=== PATIENT | male | born 1950 | race Caucasian/White ===

== ENCOUNTER 2019-12-10 17:43 | Emergency (ER) | payer MEDICARE, BC ==
[2019-12-10] MEDS ORDERED: Adenosine 6 MG/2 ML VIAL ONE (18:30)
[2019-12-10] MEDS ORDERED: Adacel (T-DAP) 0.5 ML SYRINGE ONE (18:30)
[2019-12-10] MEDS ORDERED: Lidocaine 1% (PF) 30 ML VIAL ONE (18:58)
[2019-12-10] MEDS ORDERED: Bacitracin 1 PK ONE (19:39)
== END 2019-12-10 19:47 | disposition home or self-care (01) ==
LOC: NAV ERS 17:43
DX: S61.211A Laceration without foreign body of left index finger without damage to nail, initial encounter (principal); I10 Essential (primary) hypertension; E11.9 Type 2 diabetes mellitus without complications; E78.5 Hyperlipidemia, unspecified; Z79.82 Long term (current) use of aspirin; Z79.899 Other long term (current) drug therapy; W26.0XXA Contact with knife, initial encounter
CPT/HCPCS: 12001; 90471; 90715; J0153; J2001